=== PATIENT | female | born 1980 | race Caucasian/White ===

== ENCOUNTER 2019-01-03 14:54 | Emergency (ER) | payer BC ==
[2019-01-03] MEDS ORDERED: Ondansetron 4 MG/2 ML SDV IVPUSH ONE (15:22)
[2019-01-03] MEDS ORDERED: Lactated Ringers 1,000 ML IV ONE ×2 (15:22→16:31)
--- NOTE | 2019-01-03 15:25 | EDM.PDOC ---
ED HPI GENERAL MEDICAL PROBLEM - General Chief Complaint: Gastrointestinal Problem Stated Complaint: VOMITTING DIAHERRA Time Seen by Provider: 01/03/19 15:17 Source of Information: Reports: Patient, Family, RN Notes Reviewed History Limitations: Reports: No Limitations - History of Present Illness INITIAL COMMENTS - FREE TEXT/NARRATIVE: 38-year-old female presents emergency department today complaint of nausea vomiting and diarrhea, this all started this morning she has multiple episodes of diarrhea as well as nausea and vomiting multiple episodes. Does have a history of for abdominal surgeries otherwise no other surgeries. Denies any sick contacts eroding the family ate the same food no fever Lower Abdominal Pain Score (Numeric/FACES): 7 - Related Data Allergies Allergy/AdvReac Type Severity Reaction Status Date / Time No Known Allergies Allergy Verified 01/03/19 15:09 Home Meds: Home Meds Ketorolac [Toradol] 10 mg PO TID PRN #20 tab 01/03/19 [Rx] Past Medical History [employer] History: Reports: - Past Surgical History Female Surgical History: Reports: Section Social & Family History - Tobacco Use Smoking Status *Q: Never Smoker - Caffeine Use Caffeine Use: Reports: Soda - Recreational Drug Use Recreational Drug Use: No ED ROS GENERAL - Review of Systems Review Of Systems: See Below Constitutional: Denies: Fever, Chills HEENT: Reports: No Symptoms Respiratory: Reports: No Symptoms Cardiovascular: Reports: No Symptoms GI/Abdominal: Reports: Abdominal Pain, Diarrhea, Nausea, Vomiting : Reports: No Symptoms ED EXAM, GI/ABD - Physical Exam Exam: See Below Exam Limited By: No Limitations General Appearance: Alert, Mild Distress Eyes: Bilateral: Normal Appearance Respiratory/Chest: No Respiratory Distress, Lungs Clear, Normal Breath Sounds, No Accessory Muscle Use, Chest Non-Tender Cardiovascular: Regular Rate, Rhythm, No Murmur GI/Abdominal Exam: Soft, No Organomegaly, No Distention, No Abnormal Bruit, Tender (Generalized) Course - Vital Signs Last Recorded V/S: Last Vital Signs Temp 97.8 F 01/03/19 15:10 Pulse 85 01/03/19 17:35 Resp 16 01/03/19 16:21 BP 129/75 01/03/19 17:35 Pulse Ox 100 01/03/19 16:21 - Orders/Labs/Meds Orders: Active Orders 24 hr Category Date Time Status Peripheral IV Care [RC] . DIRECTED Care 01/03/19 15:23 Active Iopamidol [Isovue-300 (61%)] Med 01/03/19 17:15 Active 100 ml IV . DIRECTED Sodium Chloride 0.9% [Normal Saline] 100 ml Med 01/03/19 17:15 Active IV ASDIRECTED Sodium Chloride 0.9% [Saline Flush] Med 01/03/19 15:23 Active 10 ml FLUSH ASDIRECTED PRN Peripheral IV Insertion Adult [OM.PC] Urgent Oth 01/03/19 15:23 Ordered Medication Orders Sodium Chloride (Normal Saline) 100 mls @ 3 mls/sec IV ASDIRECTED CORWIN Last Admin: 01/03/19 17:17 Dose: 3 mls/sec Iopamidol (Isovue-300 (61%)) 100 ml IV . DIRECTED [facility] Last Admin: 01/03/19 17:17 Dose: 100 ml Sodium Chloride (Saline Flush) 10 ml FLUSH ASDIRECTED PRN PRN Reason: Keep Vein Open Last Admin: 01/03/19 17:16 Dose: 10 ml Admin: 01/03/19 15:36 Dose: 10 ml Labs: Laboratory Tests 01/03/19 01/03/19 01/03/19 Range/Units 15:38 15:38 15:38 WBC 12.6 H (4.5-11.0) K/uL RBC 4.69 (3.30-5.50) M/uL Hgb 13.6 (12.0-15.0) g/dL Hct 39.7 (36.0-48.0) % MCV 85 (80-98) fL MCH 29 (27-31) pg MCHC 34 (32-36) % Plt Count 138 L (150-400) K/uL Neut % (Auto) 92 H (36-66) % Lymph % (Auto) 5 L (24-44) % [place] % (Auto) 3 (2-6) % Eos % (Auto) 0 L (2-4) % Baso % (Auto) 0 (0-1) % Sodium 141 (140-148) mmol/L Potassium 3.2 L (3.6-5.2) mmol/L Chloride 104 (100-108) mmol/L Carbon Dioxide 21 (21-32) mmol/L Anion Gap 19.2 H (5.0-14.0) mmol/L BUN 9 (7-18) mg/dL Creatinine 1.1 H (0.6-1.0) mg/dL Est Cr Clr Drug Dosing 55.92 mL/min Estimated GFR (MDRD) 56 L (>60) Glucose 156 H (74-106) mg/dL Lactic Acid 5.6 H (0.4-2.0) mmol/L Calcium 9.2 (8.5-10.1) mg/dL Total Bilirubin 0.4 (0.2-1.0) mg/dL AST 20 (15-37) U/L ALT 28 (12-78) U/L Alkaline Phosphatase 88 (46-116) U/L Total Protein 7.6 (6.4-8.2) g/dL Albumin 4.1 (3.4-5.0) g/dL Globulin 3.5 (2.3-3.5) g/dL Albumin/Globulin Ratio 1.2 (1.2-2.2) Lipase 84 (73-393) U/L HCG, Qual Urine Color (YELLOW) Urine Appearance (CLEAR) Urine pH (5.0-8.0) Ur Specific [place] (1.008-1.030) Urine Protein (NEGATIVE) mg/dL Urine Glucose (UA) (NEGATIVE) mg/dL Urine Ketones (NEGATIVE) mg/dL Urine Occult Blood (NEGATIVE) Urine Nitrite (NEGATIVE) Urine Bilirubin (NEGATIVE) Urine Urobilinogen (0.2-1.0) EU/dL Ur Leukocyte Esterase (NEGATIVE) Urine RBC (0-5) Urine WBC (0-5) Ur Epithelial Cells Amorphous Sediment Urine Bacteria Urine Mucus 01/03/19 01/03/19 Range/Units 15:38 16:29 WBC (4.5-11.0) K/uL RBC (3.30-5.50) M/uL Hgb (12.0-15.0) g/dL Hct (36.0-48.0) % MCV (80-98) fL MCH (27-31) pg MCHC (32-36) % Plt Count (150-400) K/uL Neut % (Auto) (36-66) % Lymph % (Auto) (24-44) % [place] % (Auto) (2-6) % Eos % (Auto) (2-4) % Baso % (Auto) (0-1) % Sodium (140-148) mmol/L Potassium (3.6-5.2) mmol/L Chloride (100-108) mmol/L Carbon Dioxide (21-32) mmol/L Anion Gap (5.0-14.0) mmol/L BUN (7-18) mg/dL Creatinine (0.6-1.0) mg/dL Est Cr Clr Drug Dosing mL/min Estimated GFR (MDRD) (>60) Glucose (74-106) mg/dL Lactic Acid (0.4-2.0) mmol/L Calcium (8.5-10.1) mg/dL Total Bilirubin (0.2-1.0) mg/dL AST (15-37) U/L ALT (12-78) U/L Alkaline Phosphatase (46-116) U/L Total Protein (6.4-8.2) g/dL Albumin (3.4-5.0) g/dL Globulin (2.3-3.5) g/dL Albumin/Globulin Ratio (1.2-2.2) Lipase (73-393) U/L HCG, Qual Negative Urine Color Yellow (YELLOW) Urine Appearance Slightly cloudy A (CLEAR) Urine pH 6.0 (5.0-8.0) Ur Specific [place] 1.025 (1.008-1.030) Urine Protein Negative (NEGATIVE) mg/dL Urine Glucose (UA) Negative (NEGATIVE) mg/dL Urine Ketones 80 H (NEGATIVE) mg/dL Urine Occult Blood Large H (NEGATIVE) Urine Nitrite Negative (NEGATIVE) Urine Bilirubin Negative (NEGATIVE) Urine Urobilinogen 0.2 (0.2-1.0) EU/dL Ur Leukocyte Esterase Negative (NEGATIVE) Urine RBC 50-75 H (0-5) Urine WBC 0-5 (0-5) Ur Epithelial Cells Moderate Amorphous Sediment Not seen Urine Bacteria Many Urine Mucus Few Meds: Medications Generic Name Dose Route Start Last Admin Trade Name Freq PRN Reason Stop Dose Admin Sodium Chloride 100 mls @ 3 mls/sec 01/03/19 17:15 01/03/19 17:17 Normal Saline IV 3 mls/sec ASDIRECTED CORWIN Administration Iopamidol 100 ml 01/03/19 17:15 01/03/19 17:17 Isovue-300 (61%) IV 100 ml . DIRECTED [facility]WIN Administration Sodium Chloride 10 ml 01/03/19 15:23 01/03/19 17:16 Saline Flush FLUSH 10 ml ASDIRECTED PRN Administration Keep Vein Open Discontinued Medications Generic Name Dose Route Start Last Admin Trade Name Litq PRN Reason Stop Dose Admin Fentanyl 50 mcg 01/03/19 15:44 01/03/19 15:48 Sublimaze IVPUSH 01/03/19 15:45 50 mcg ONETIME ONE Administration Fentanyl 50 mcg 01/03/19 16:30 01/03/19 16:41 Sublimaze IVPUSH 01/03/19 16:31 50 mcg ONETIME ONE Administration Lactated Ringer's 1,000 mls @ 999 mls/hr 01/03/19 15:22 01/03/19 15:34 Ringers, Lactated IV 01/03/19 16:22 999 mls/hr BOLUS ONE Administration Lactated Ringer's 1,000 mls @ 999 mls/hr 01/03/19 16:31 01/03/19 16:40 Ringers, Lactated IV 01/03/19 17:31 999 mls/hr BOLUS ONE Administration Ketorolac Tromethamine 30 mg 01/03/19 17:58 01/03/19 18:01 Toradol IVPUSH 01/03/19 17:59 30 mg ONETIME ONE Administration Lorazepam 0.5 mg 01/03/19 17:26 01/03/19 17:33 Ativan IVPUSH 01/03/19 17:27 0.5 mg ONETIME ONE Administration Ondansetron HCl 4 mg 01/03/19 15:22 01/03/19 15:34 Zofran IVPUSH 01/03/19 15:23 4 mg ONETIME ONE Administration Prochlorperazine Edisylate 10 mg 01/03/19 16:30 01/03/19 16:36 Compazine IVPUSH 01/03/19 16:31 10 mg ONETIME ONE Administration Sodium Chloride 10 ml 01/03/19 17:05 01/03/19 18:02 Saline Flush FLUSH 01/03/19 17:06 10 ml ONETIME ONE Administration Departure - Departure Time of Disposition: 18:13 Disposition: Home, Self-Care 01 Condition: Fair Clinical Impression: Nephrolithiasis - Discharge Information Prescriptions: Ketorolac [Toradol] 10 mg PO TID PRN #20 tab PRN Reason: Pain Instructions: Kidney Stones, [id number] Referrals: PCP,None [Primary Care Provider] - Forms: ED Department Discharge Additional Instructions: Use the ketorolac as needed for baseline pain control this medication has been faxed to [facility], use the hydrocodone for breakthrough pain, use Zofran as needed for nausea and vomiting symptoms, continue to push fluids, Please followup with your primary care provider in 3-5 days if not better, please call return to the emergency department with worsening of symptoms. - My Orders Last 24 Hours: My Active Orders 01/03/19 15:23 Peripheral IV Care [RC] . DIRECTED Sodium Chloride 0.9% [Saline Flush] 10 ml FLUSH ASDIRECTED PRN Peripheral IV Insertion Adult [OM.PC] Urgent 01/03/19 17:15 Iopamidol [Isovue-300 (61%)] 100 ml IV . DIRECTED Sodium Chloride 0.9% [Normal Saline] 100 ml IV ASDIRECTED - Assessment/Plan Last 24 Hours: My Active Orders 01/03/19 15:23 Peripheral IV Care [RC] . DIRECTED Sodium Chloride 0.9% [Saline Flush] 10 ml FLUSH ASDIRECTED PRN Peripheral IV Insertion Adult [OM.PC] Urgent 01/03/19 17:15 Iopamidol [Isovue-300 (61%)] 100 ml IV . DIRECTED Sodium Chloride 0.9% [Normal Saline] 100 ml IV ASDIRECTED Plan: Assessment Acuity = acute Site and laterality = 3 mm nephrolithiasis right uterovesical junction Etiology = unknown Manifestations = nausea vomiting, abdominal pain Location of injury = Home Lab values = WBC elevated 12.6 consistent leukocytosis probable acute phase potassium low at 3.2 consistent hypokalemia creatinine elevated 1.1 consistent acute renal failure stage G IIIa lactic acid elevated 5.6 consistent lactic acidosis probably related to recent nausea and vomiting urinalysis reveals large amount of blood 50-[address] scan describes a stone above Plan Good improvement with Toradol plan is discharge home with Toradol 10 mg by mouth 3 times a day when necessary total #20 faxed to [facility], hydrocodone 5/ 325 one tab by mouth 3 times a day when necessary total #10 and Zofran 4 mg ODT 1 tab by mouth 3 times a day when necessary total #5 follow-up primary care 3-5 days if not better This note was dictated using [email or web address] voice recognition software please call with any questions on syntax or grammar.
[2019-01-03] MEDS: Sodium Chloride 0.9% 10 ML Syringe FLUSH PRN ×2 (15:36→17:16)
[2019-01-03] MEDS ORDERED: fentaNYL 100 MCG/2 ML SDV IVPUSH ONE ×2 (15:44→16:30)
--- NOTE | 2019-01-03 16:24 | CRLCR ---
INDICATION: Abdominal pain COMPARISON: None available. FINDINGS: A single AP supine view of the abdomen was obtained. The bowel gas pattern is unremarkable with nothing seen to suggest obstruction or ileus. There is no sign of dilatation of the small bowel or colon. There is no free air. Soft tissue planes are preserved and there is no sign of a mass. No calcifications of concern are identified. There is minimal scoliosis of the lumbar spine convex towards the left. The osseous structures are otherwise normal in appearance for the patient`s age. The left lung base is clear. The right lung base is not fully included on today`s study. IMPRESSION: No sign of obstruction or ileus. Dictated by Mick Willams MD @ Jan 03 2019 4:19PM Signed by Dr. Mick Willams @ Jan 03 2019 4:22PM
[2019-01-03] MEDS ORDERED: Prochlorperazine 10 MG/2 ML SDV IVPUSH ONE (16:30)
[2019-01-03] MEDS ORDERED: Sodium Chloride 0.9% 10 ML Syringe FLUSH ONE (17:05)
[2019-01-03] MEDS ORDERED: Sodium Chloride 0.9% 100 ML IV SCH (17:15)
[2019-01-03] MEDS ORDERED: Iopamidol 612 MG/ML 100 ML Bottle IV SCH (17:15)
[2019-01-03] MEDS ORDERED: LORazepam 2 MG/ML SDV IVPUSH ONE (17:26)
--- NOTE | 2019-01-03 17:46 | CRLCT ---
INDICATION: Generalized abdominal pain with nausea and vomiting. TECHNIQUE: CT abdomen and pelvis acquired with 100 cc Isovue-300 IV contrast. COMPARISON: Abdomen x-ray January 03, 2019. FINDINGS: Lower chest: Regional area of emphysema is in the medial right lower lobe. A nodule in this area measures 7 mm on series 2, image 10. Liver: Unremarkable. Normal in size and attenuation. No masses. Gallbladder and bile ducts: Unremarkable. No stones or inflammation. No biliary dilatation. Pancreas: Unremarkable. No mass or inflammation. Spleen: Unremarkable. Normal in size. No masses. Adrenal glands: Unremarkable. No nodules. Kidneys: Small 2-3 mm stone at the right ureterovesical junction on series 2, image 119 is causing moderate hydronephrosis. No other kidney or ureteral stones. GI tract: Unremarkable. Normal in caliber. No sign of mass or inflammation. Normal appendix. Vasculature: Unremarkable. Mesenteric arteries are patent. Lymph nodes: No lymphadenopathy. Omentum/Peritoneum/Abdominal Wall: Unremarkable. No sign of mass or infiltration. No free air or significant free fluid. Pelvis: Unremarkable. Bones: Unremarkable for age. IMPRESSION: 1. 3 mm stone at the right UVJ causing moderate hydronephrosis. No other stones. 2. 7 mm indeterminate nodule is within the regional area of emphysema in the medial right lower lobe. Probability of malignancy is low, approximately 1 percent. Guidelines recommend follow-up CT chest in 6-12 months for further evaluation. Dictated by Bubba Verde MD @ 01/03/2019 5:45:03 PM Please note that all CT scans at this facility use dose modulation, iterative reconstruction, and/or weight-based dosing when appropriate to reduce radiation dose to as low as reasonably achievable. Dictated by: Bubba Verde MD @ 01/03/2019 17:45:13 (Electronically Signed)
[2019-01-03] MEDS ORDERED: Ketorolac 30 MG/ML SDV IVPUSH ONE (17:58)
== END 2019-01-03 18:22 | disposition home or self-care (01) ==
LOC: JP.ED 14:54
DX: N20.0 Calculus of kidney (principal)
CPT/HCPCS: 36415; 74018; 74177; 80053; 81001; 83605; 83690; 84703; 85025; 96361; 96374; 96375; 96376; 99284; J0780; J1885; J2060; J2405; J3010; J7030; J7120; Q9967